=== PATIENT | female | born 2000 | race Caucasian/White ===

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

== ENCOUNTER 2023-04-12 19:23 | Emergency (ER) | payer OTHER ==
[~2023-04-12] VITALS: Ht 170.2 cm; Wt 70.3 kg
[~2023-04-12 19:23] MED LIST changes: +MAG-27 PO
[2023-04-12 19:34] VITALS: BP 140/89; PULSE 85; RESP 16; TEMP 98; O2SAT 100
--- NOTE | 2023-04-12 19:37 | NUR ---
TO LOBBY A/W BED AMBULATORY
--- NOTE | 2023-04-12 20:05 | NUR ---
SEEN AND EXAMINED BY JOZEF
[2023-04-12] MEDS ORDERED: KETOROLAC 30 MG/ML VIAL IM ONE (20:15)
[2023-04-12] MEDS ORDERED: NAPR-54 PO (20:16)
--- NOTE | 2023-04-12 20:22 | NUR ---
PT AMBULATED TO ER BED 3
[2023-04-12 20:37] VITALS: BP 140/89; PULSE 85; RESP 16; TEMP 98; O2SAT 100
--- NOTE | 2023-04-12 20:39 | NUR ---
Pain reassessment to early due to discharge at 2038
--- NOTE | 2023-04-12 20:39 | NUR ---
Patient discharged with v/s stable. Written and verbal after care instructions given and explained. New rx naproxen. Patient verbalized understanding. Ambulatory with steady gait. All questions addressed prior to discharge. Advised to follow up with PMD.
== END 2023-04-12 20:37 | disposition home or self-care (01) ==
LOC: MED 19:23
DX: N12 Tubulo-interstitial nephritis, not specified as acute or chronic (principal); Z79.899 Other long term (current) drug therapy
CPT/HCPCS: 81025; 96372; 99283; J1885

== ENCOUNTER 2023-04-15 17:43 | Emergency (ER) | payer OTHER ==
[~2023-04-15] VITALS: Ht 170.2 cm; Wt 70.3 kg
[~2023-04-15 17:43] MED LIST changes: +NAPR-54 PO
[2023-04-15 18:11] VITALS: BP 123/64; PULSE 98; RESP 22; TEMP 100.4; O2SAT 100
--- NOTE | 2023-04-15 18:39 | NUR ---
PT AMBULATED TO BED 8
[2023-04-15] MEDS ORDERED: NACL 0.9% 1,000 ML IV SCH (18:40)
[2023-04-15 18:45] VITALS: O2SAT 100
[2023-04-15] MEDS ORDERED: ACETAMINOPHEN 325 MG TAB PO ONE (18:45)
--- NOTE | 2023-04-15 18:45 | NUR ---
22YO FEMALE PT C/O L FLANK PAIN X6DAYS. REPORTS ONSET W/ DYSURIA AND HEMATURIA. PT RECENTLY SEEN IN ER AND DX PYLENOPHRITIS W/O RELIEF AFTER ANTIBIOTICS AND PAIN MEDICATION GIVEN. PT W/ FEVER AT ARRIVAL. DENIES N/V/D, CHEST PAIN OR SOB. PT AAOX4, HOB POSITIONED PER COMFORT. CALL LIGHT WITHIN REACH HX: DENIES NKA
[2023-04-15 19:16] LABS: BASOPHILS % (AUTO) 0.3 % (0.0-2.0); EOSINOPHILS % (AUTO) 0.4 % (0.0-4.0); HEMATOCRIT 35.6 % (36-48); HEMOGLOBIN 11.8 g/dL (12.0-16.0); LYMPHOCYTES # (AUTO) 0.6 K/uL (2.5-16.5); LYMPHOCYTES % (AUTO) 7.3 % (20.5-51.1); MEAN CORPUSCULAR HEMOGLOBIN 27 pg (27-31); MEAN CORPUSCULAR HGB CONC 33 g/dL (33-37); MEAN CORPUSCULAR VOLUME 82.4 fL (80-94); MONOCYTES # (AUTO) 0.9 K/uL (0.8-1.0); NEUTROPHILS # (AUTO) 6.9 K/uL (1.8-7.7); PLATELET COUNT (AUTO) 202 K/uL (140-450); RED BLOOD CELL COUNT(AUTO) 4.31 MIL/uL (4.20-5.40); RED CELL DISTRIBUTION WIDTH 13.7 % (11.6-13.7); WHITE BLOOD COUNT (AUTO) 8.6 K/uL (4.5-11.0)
[2023-04-15 19:31] LABS: ALBUMIN 3.2 g/dL (3.4-5.0); ANION GAP 14.3 (8-16); ASPARTATE AMINOTRANSFERASE 19 U/L (15-37); CARBON DIOXIDE 24.7 mmol/L (21-32); CHLORIDE 104 mmol/L (98-107); GFR ARICAN-AMERICAN 91 mL/min (>90); GLUCOSE 97 mg/dL (74-106); LIPASE 181 U/L (73-393); SODIUM SERUM 139 mmol/L (136-145); TOTAL BILIRUBIN 0.4 mg/dL (0.0-1.0); UREA NITROGEN, BLOOD 9 mg/dL (7-18)
[2023-04-15] MEDS ORDERED: cefTRIAXone 1,000 MG VIAL ONE (19:31)
--- NOTE | 2023-04-15 19:41 | NUR ---
REPORT GIVEN TO DEYSI GASPAR. TRANSFER OF CARE AT THIS TIME
[2023-04-15] MEDS ORDERED: CEPH-588 PO (19:53)
[2023-04-15] MEDS ORDERED: KETOROLAC 15 MG/ML VIAL IVP ONE (19:55)
[2023-04-15 20:11] LABS: BILIRUBIN,URINE 1+ (NEGATIVE); BLOOD, URINE 3+ (NEGATIVE); COLOR,URINE YELLOW (YELLOW); LEUKOCYTE ESTERASE ,URINE 2+ (NEGATIVE); NITRITE, URINE NEGATIVE (NEGATIVE); UGLUCOSE NEGATIVE (NEGATIVE)
--- NOTE | 2023-04-15 20:20 | NUR ---
Per Tiffany Montemayor COLD ROLL PACKER SHEET IRON, NaCl 0.9 1L started at 1920 and stopped at 2019. ED director aware.
[2023-04-15 20:21] LABS: APPEARANCE,URINE CLOUDY (CLEAR); RBC,URINE 20-50 /HPF (0-5)
--- NOTE | 2023-04-15 20:30 | NUR ---
Patient discharged with v/s stable. Written and verbal after care instructions given and explained. Patient alert, oriented and verbalized understanding of instructions. Ambulatory with steady gait. All questions addressed prior to discharge. ID band removed. Patient advised to follow up with PMD. Rx of CEPHALXIN given. Patient educated on indication of medication including possible reaction and side effects. Opportunity to ask questions provided and answered.
[2023-04-15 20:48] VITALS: BP 112/67; PULSE 88; RESP 20; TEMP 98; O2SAT 100
== END 2023-04-15 20:38 | disposition home or self-care (01) ==
LOC: MED 17:43
DX: R10.9 Unspecified abdominal pain (principal); R30.0 Dysuria; R35.0 Frequency of micturition; Z79.899 Other long term (current) drug therapy
CPT/HCPCS: 36415; 80053; 81001; 81025; 83605; 83690; 84484; 85025; 87040; 87086; 96365; 96375; 99285; J0696; J1885; J7030

== ENCOUNTER 2024-03-05 22:51 | Emergency (ER) | payer OTHER, MEDICAID ==
[~2024-03-05] VITALS: Ht 170.2 cm; Wt 89.8 kg
[~2024-03-05 22:51] MED LIST changes: +CEPH-588 PO; +NAPR-337 PO; -NAPR-54 PO
[2024-03-05 23:05] VITALS: BP 137/90; PULSE 82; RESP 18; TEMP 97.2; O2SAT 100
[2024-03-06] MEDS: KETOROLAC 30 MG/ML VIAL IM ONE (03:06)
[2024-03-06] MEDS ORDERED: CYCL-711 PO (03:24)
[2024-03-06] MEDS ORDERED: NAPR-337 PO (03:24)
== END 2024-03-06 03:34 | disposition home or self-care (01) ==
LOC: MED 22:51
DX: S40.022A Contusion of left upper arm, initial encounter (principal); S70.12XA Contusion of left thigh, initial encounter; M79.672 Pain in left foot; Z79.899 Other long term (current) drug therapy; V89.2XXA Person injured in unspecified motor-vehicle accident, traffic, initial encounter; Y93.89 Activity, other specified; Y92.410 Unspecified street and highway as the place of occurrence of the external cause; Y99.8 Other external cause status
CPT/HCPCS: 71045; 73552; 73620; 96372; 99284; J1885; Q0092